=== PATIENT | male | born 1970 | race Caucasian/White ===

== ENCOUNTER 2018-02-18 16:55 | Emergency (ER) | payer MEDICAID ==
[~2018-02-18] VITALS: Ht 175.3 cm; Wt 61.4 kg
[2018-02-18 17:08] VITALS: BP 113/53
[2018-02-18] MEDS ORDERED: TRAZ-136 PO (17:19)
== END 2018-02-18 17:45 | disposition home or self-care (01) ==
LOC: ED 17:39
DX: B86 Scabies (principal); J45.909 Unspecified asthma, uncomplicated; Z88.0 Allergy status to penicillin; Z89.029 Acquired absence of unspecified finger(s)
CPT/HCPCS: 99283; Q0177

== ENCOUNTER 2018-02-23 21:04 | Emergency (ER) | payer MEDICAID ==
[~2018-02-23] VITALS: Ht 175.3 cm; Wt 62.5 kg
[~2018-02-23 21:04] MED LIST: TRAZ-136 PO
[2018-02-23 21:07] VITALS: BP 118/73
== END 2018-02-23 21:51 | disposition home or self-care (01) ==
LOC: ED 21:45
DX: L03.113 Cellulitis of right upper limb (principal); B86 Scabies; J45.909 Unspecified asthma, uncomplicated; Z89.029 Acquired absence of unspecified finger(s)
CPT/HCPCS: 99283

== ENCOUNTER 2018-03-08 07:34 | Emergency (ER) | payer MEDICAID ==
[~2018-03-08] VITALS: Ht 175.3 cm; Wt 63.0 kg
[2018-03-08] MEDS ORDERED: DEXAMETHASONE 4 MG TABLET ONE (08:29)
[2018-03-08] MEDS ORDERED: LIDOCAINE-MPF 2%, 2ML ONE (08:29)
[2018-03-08] MEDS ORDERED: BACITRACIN ZINC OINT 500U/GM, 0.9 GM ONE (08:29)
[2018-03-08] MEDS ORDERED: CEFTRIAXONE 1,000 MG IM ONE (08:30)
[2018-03-08] MEDS ORDERED: DEXAMETHASONE 4 MG TABLET PO ONE (08:30)
[2018-03-08] MEDS ORDERED: CEFTRIAXONE 1,000 MG ONE (08:31)
[2018-03-08 08:39] VITALS: BP 114/64
== END 2018-03-08 09:08 | disposition home or self-care (01) ==
LOC: ED 09:00
DX: L03.113 Cellulitis of right upper limb (principal); L03.114 Cellulitis of left upper limb; J45.909 Unspecified asthma, uncomplicated
CPT/HCPCS: 96372; 99283; J0696

== ENCOUNTER 2018-03-20 09:39 | Emergency (ER) | payer MEDICAID ==
[~2018-03-20] VITALS: Ht 175.3 cm; Wt 62.6 kg
[2018-03-20 09:42] VITALS: BP 119/69
== END 2018-03-20 10:36 | disposition home or self-care (01) ==
LOC: ED 09:54
DX: L20.84 Intrinsic (allergic) eczema (principal); J45.909 Unspecified asthma, uncomplicated; Z89.029 Acquired absence of unspecified finger(s)
CPT/HCPCS: 99283

== ENCOUNTER 2018-04-23 23:43 | Emergency (ER) | payer MEDICAID ==
[~2018-04-23] VITALS: Ht 175.3 cm; Wt 63.4 kg
[2018-04-24] MEDS ORDERED: DIPHENHYDRAMINE 25 MG CAPSULE PO ONE (00:30)
[2018-04-24] MEDS ORDERED: DIPHENHYDRAMINE 25 MG CAPSULE ONE (00:30)
[2018-04-24 00:31] LABS: MEAN CORPUSCULAR HEMOGLOBIN 32.6 pg (27.5-34.5); MEAN CORPUSCULAR HGB CONC 35.6 g/dL (33.2-36.2); MEAN CORPUSCULAR VOLUME 91.6 fL (81-97); MEAN PLATELET VOLUME 8.1 fL (7.4-10.4); PLATELET COUNT 229 x10^3/uL (130-400); RED BLOOD COUNT 5.05 x10^6/uL (4.38-5.82); RED CELL DISTRIBUTION WIDTH 13.3 % (9.4-14.8)
[2018-04-24 00:42] LABS: ALANINE AMINOTRANSFERASE 200 U/L (12-78); ALBUMIN 3.5 g/dL (3.4-5.0); ANION GAP 7 mmol/L (5-15); CALCIUM 7.7 mg/dL (8.5-10.1); CHLORIDE 108 mmol/L (98-107); CREATININE 1.45 mg/dL (0.7-1.3)
[2018-04-24 00:44] LABS: ALKALINE PHOSPHATASE 107 U/L (45-117); BILIRUBIN,TOTAL 0.5 mg/dL (0.2-1.0); TOTAL PROTEIN 6.7 g/dL (6.4-8.2)
[2018-04-24 01:04] LABS: MD YES
[2018-04-24 01:08] LABS: BAND#(MANUAL) 0.11 x10^3/uL; BANDS%(MANUAL) 1 % (0-7); EOS#(MANUAL) 2.23 x10^3/uL (0.0-0.4); EOS% (MANUAL) 21 % (1-7); LYMPH#(MANUAL) 2.65 x10^3/uL (1-3.4); LYMPHS% (MANUAL) 25 % (22-44); MONOS#(MANUAL) 0.11 x10^3/uL (0.3-2.7); MONOS% (MANUAL) 1 % (2-9); SEG#(MANUAL) 5.51 x10^3/uL (1.8-6.8); SEGS% (MANUAL) 52 % (42-75)
[2018-04-24 01:09] LABS: <PLATELET ESTIMATE> ADEQUATE; <PLT MORPHOLOGY> NORMAL PLT MORPH; <RBC MORPHOLOGY> NORMAL
[2018-04-24 01:27] VITALS: BP 116/67
== END 2018-04-24 02:00 | disposition home or self-care (01) ==
LOC: ED 04-24 00:38
DX: L50.1 Idiopathic urticaria (principal); Z88.0 Allergy status to penicillin
CPT/HCPCS: 36415; 71045; 80053; 85025; 93005; 99285; J7512; Q0163

== ENCOUNTER 2018-06-01 13:08 | Emergency (ER) | payer MEDICAID ==
[~2018-06-01] VITALS: Ht 175.3 cm; Wt 62.8 kg
[~2018-06-01 13:08] MED LIST changes: -TRAZ-136 PO; +TRAZ50TA66 PO
[2018-06-01 13:11] VITALS: BP 125/82
[2018-06-01] MEDS ORDERED: FAMOTIDINE 20 MG TABLET PO ONE (14:00)
[2018-06-01] MEDS ORDERED: CLINDAMYCIN 300 MG CAPSULE PO ONE (14:00)
[2018-06-01] MEDS ORDERED: FAMOTIDINE 20 MG TABLET ONE (14:01)
[2018-06-01] MEDS ORDERED: CLINDAMYCIN 300 MG CAPSULE ONE (14:02)
[2018-06-01 14:46] LABS: BASOPHILS # (AUTO) 0.05 x10^3/uL (0-0.1); BASOPHILS % (AUTO) 1 % (0-1); EOSINOPHILS # (AUTO) 0.21 x10^3/uL (0-0.4); EOSINOPHILS % (AUTO) 2 % (1-7); LYMPHOCYTES # (AUTO) 1.14 x10^3/uL (1-3.4); LYMPHOCYTES % (AUTO) 10 % (22-44); MD NO; MEAN CORPUSCULAR HGB CONC 33.6 g/dL (33.2-36.2); MEAN CORPUSCULAR VOLUME 92.2 fL (81-97); MEAN PLATELET VOLUME 8.3 fL (7.4-10.4); MONOCYTES # (AUTO) 0.55 x10^3/uL (0.2-0.8); MONOCYTES % (AUTO) 5 % (2-9); NEUTROPHILS # (AUTO) 9.26 x10^3/uL (1.8-6.8); NEUTROPHILS % (AUTO) 83 % (42-75); PLATELET COUNT 257 x10^3/uL (130-400); RED BLOOD COUNT 5.28 x10^6/uL (4.38-5.82); RED CELL DISTRIBUTION WIDTH 13.1 % (9.4-14.8)
[2018-06-01 14:54] LABS: ALBUMIN 4.1 g/dL (3.4-5.0); ANION GAP 6 mmol/L (5-15); CALCIUM 8.7 mg/dL (8.5-10.1); CHLORIDE 105 mmol/L (98-107); CREATININE 1.53 mg/dL (0.7-1.3)
== END 2018-06-01 15:23 | disposition home or self-care (01) ==
LOC: ED 13:26
DX: L03.113 Cellulitis of right upper limb (principal); L20.9 Atopic dermatitis, unspecified; J45.909 Unspecified asthma, uncomplicated
CPT/HCPCS: 36415; 73080; 80048; 82040; 85025; 99284; Q0177

== ENCOUNTER 2018-08-24 09:39 | Emergency (ER) | payer MEDICAID ==
[~2018-08-24] VITALS: Ht 175.3 cm; Wt 65.0 kg
[2018-08-24] MEDS ORDERED: LORazepam 2 MG/ML, 1ML IVPush ONE (10:00)
[2018-08-24] MEDS ORDERED: SODIUM CHLORIDE 0.9% 1,000ML IVBOLUS ONE (10:00)
[2018-08-24] MEDS ORDERED: SODIUM CHLORIDE FLUSH 10ML SYR IVF ONE (10:00)
[2018-08-24] MEDS ORDERED: LORazepam 2 MG/ML, 1ML ONE (10:03)
--- NOTE | 2018-08-24 10:54 | NUR ---
PT NO LONGER DIAPHORETIC. FLUIDS INFUSING. WILL CONTINUE TO MONITOR
[2018-08-24 11:04] VITALS: BP 115/59
--- NOTE | 2018-08-24 11:04 | NUR ---
HR SLOWING DOWN. PT NOTED TO HAVE TWITCHING MOVEMENT
--- NOTE | 2018-08-24 12:20 | NUR ---
PT ABLE TO WALK TO BATHROOM AND BACK WITHOUT ASSISANCE. PT GIVEN DISCHARGE PAPERS, ASSISTED WITH GETTING DRESSED. PT CONTINUES TO HAVE JERKING MOVEMENTS BUT ABLE TO WALK WITHOUT ASSISANCE TO DISCHARGE WINDOW. REPAIR MILLER MILES AT BEDSIDE OBSERVING PT'S ABILITY TO BE DISCHARGED
== END 2018-08-24 12:24 | disposition home or self-care (01) ==
LOC: ED 12:05
DX: R00.0 Tachycardia, unspecified (principal); F41.9 Anxiety disorder, unspecified; F15.929 Other stimulant use, unspecified with intoxication, unspecified; F17.200 Nicotine dependence, unspecified, uncomplicated; J45.909 Unspecified asthma, uncomplicated
CPT/HCPCS: 93005; 96374; 99283; J2060; J7030

== ENCOUNTER 2019-07-05 14:42 | Emergency (ER) | payer MEDICAID ==
[~2019-07-05] VITALS: Ht 175.3 cm; Wt 60.0 kg
--- NOTE | 2019-07-05 16:00 | NUR ---
REMAINS SLEEPING CONTINUING TO MONITOR
--- NOTE | 2019-07-05 16:54 | NUR ---
PT SLEEPING AT THIS TIME MONITORING
[2019-07-05 17:05] VITALS: BP 124/87
== END 2019-07-05 17:45 ==
LOC: ED 17:39
DX: F10.10 Alcohol abuse, uncomplicated (principal); F15.10 Other stimulant abuse, uncomplicated; J45.909 Unspecified asthma, uncomplicated; Y90.9 Presence of alcohol in blood, level not specified
CPT/HCPCS: 99283

== ENCOUNTER 2019-11-11 01:15 | Inpatient (IN) | payer MEDICAID ==
[~2019-11-11] VITALS: Ht 175.3 cm; Wt 55.6 kg
--- NOTE | 2019-11-11 01:25 | NUR ---
BIB [facility] FOR FEELING DEHYDRATED AFTER DOING METH. REPORTS METH USE FOR 30 YEARS. REPORTS A METH BINGE FOR THE PAST 40 HRS. LAST INJECTED 1 HR [employer]. PT REPORTS DRY MOUTH AND DIZZINESS. PT RESTLESS BUT IS CALM AND COOPERATIVE WITH STAFF AND A&OX4.
[2019-11-11] MEDS ORDERED: SODIUM CHLORIDE FLUSH 10ML SYR IVF ONE (01:30)
[2019-11-11] MEDS ORDERED: SODIUM CHLORIDE 0.9% 1,000ML IVBOLUS ONE ×2 (01:30→02:30)
[2019-11-11] MEDS ORDERED: LORazepam 1MG TABLET ONE (01:30)
[2019-11-11] MEDS ORDERED: LORazepam 1MG TABLET PO ONE (01:30)
--- NOTE | 2019-11-11 01:47 | NUR ---
IV STARTED IN LAC. IVF BOLUS INFUSING. PT DRINKING WATER. LABS DRAWN AND ATIVAN GIVEN.
[2019-11-11 01:52] LABS: BASOPHILS # (AUTO) 0.03 x10^3/uL (0-0.1); BASOPHILS % (AUTO) 0 % (0-1); EOSINOPHILS % (AUTO) 0 % (1-7); LYMPHOCYTES # (AUTO) 0.77 x10^3/uL (1-3.4); LYMPHOCYTES % (AUTO) 5 % (22-44); MD NO; MEAN CORPUSCULAR HEMOGLOBIN 31.7 pg (27.5-34.5); MEAN CORPUSCULAR HGB CONC 34.1 g/dL (33.2-36.2); MEAN CORPUSCULAR VOLUME 93.1 fL (81-97); MEAN PLATELET VOLUME 8.2 fL (7.4-10.4); MONOCYTES # (AUTO) 0.15 x10^3/uL (0.2-0.8); MONOCYTES % (AUTO) 1 % (2-9); NEUTROPHILS # (AUTO) 15.19 x10^3/uL (1.8-6.8); NEUTROPHILS % (AUTO) 94 % (42-75); PLATELET COUNT 258 x10^3/uL (130-400); RED BLOOD COUNT 5.25 x10^6/uL (4.38-5.82); RED CELL DISTRIBUTION WIDTH 13.8 % (9.4-14.8)
[2019-11-11 02:01] LABS: ALANINE AMINOTRANSFERASE 126 U/L (12-78); ALBUMIN 4.9 g/dL (3.4-5.0); ANION GAP 10 mmol/L (5-15); CALCIUM 9.8 mg/dL (8.5-10.1); CHLORIDE 102 mmol/L (98-107); CREATININE 2.46 mg/dL (0.7-1.3)
[2019-11-11 02:03] LABS: ALKALINE PHOSPHATASE 84 U/L (45-117); BILIRUBIN,TOTAL 1.5 mg/dL (0.2-1.0); TOTAL PROTEIN 8.6 g/dL (6.4-8.2)
--- NOTE | 2019-11-11 02:29 | NUR ---
PT REPORTS HE IS FEELING MUCH BETTER. 2ND LITER IVF BOLUS INFUSING AT THIS TIME.
--- NOTE | 2019-11-11 02:57 | NUR ---
PT SLEEPING AT THIS TIME.
--- NOTE | 2019-11-11 03:34 | NUR ---
PT INFORMED OF INPATIENT ADMISSION. PT WITH SPASTIC/TWITCHING MOVEMENTS BUT ALERT AND ORIENTED.
[2019-11-11 04:00] VITALS: BP 111/67
[2019-11-11] MEDS ORDERED: ONDANSETRON 2MG/ML, 2ML IVPush PRN (04:00)
[2019-11-11] MEDS ORDERED: ACETAMINOPHEN 325 MG TABLET PO PRN (04:00)
[2019-11-11] MEDS ORDERED: hydrALAzine 20 MG/ML, 1ML IVPush PRN (04:00)
[2019-11-11] MEDS: LACTATED RINGERS 1,000 ML IV SCH ×4 (05:19→16:31)
[2019-11-11 05:53] LABS: CHLORIDE,URINE RANDOM 90 mmol/L; POTASSIUM,URINE RANDOM 73 mmol/L; SODIUM,URINE RANDOM 106 mmol/L
[2019-11-11 05:54] LABS: AMPHETAMINE SCREEN, URINE Positive (Negative); BARBITURATE SCREEN, URINE Negative (Negative); BENZODIAZEPINE SCREEN, URINE Negative (Negative); CANNABINOID SCREEN, URINE Negative (Negative); COCAINE SCREEN, URINE Negative (Negative); METHADONE SCREEN, URINE Negative (Negative); OPIATE SCREEN, URINE Negative (Negative)
[2019-11-11] MEDS: LORazepam 2 MG/ML, 1ML IVPush PRN ×2 (07:52→12:11)
[2019-11-11 08:01] LABS: ANION GAP 10 mmol/L (5-15); CALCIUM 8.3 mg/dL (8.5-10.1); CHLORIDE 108 mmol/L (98-107); CREATININE 1.84 mg/dL (0.7-1.3)
[2019-11-11 08:05] LABS: CREATINE KINASE, TOTAL 438 U/L (39-308)
[2019-11-11 09:15] VITALS: BP 160/66
[2019-11-11 13:16] VITALS: BP 102/56
== END 2019-11-11 19:33 | disposition left against medical advice (07) | DRG 683 ==
LOC: ED 03:15 → EDIP 03:42 → 3N 04:01
PROVIDERS: ADMIT Family Medicine; ATTEND Family Medicine
DX: N17.0 Acute kidney failure with tubular necrosis (principal); F15.121 Other stimulant abuse with intoxication delirium; E86.0 Dehydration; D72.829 Elevated white blood cell count, unspecified; E87.5 Hyperkalemia; J45.909 Unspecified asthma, uncomplicated; E80.6 Other disorders of bilirubin metabolism; R74.0 Nonspecific elevation of levels of transaminase and lactic acid dehydrogenase [LDH]; R74.8 Abnormal levels of other serum enzymes; Z89.021 Acquired absence of right finger(s); Z89.011 Acquired absence of right thumb; Z88.0 Allergy status to penicillin; Z91.013 Allergy to seafood
CPT/HCPCS: 36415; 80048; 80053; 80074; 80307; 82436; 82550; 82570; 84133; 84300; 85025; 87521; 87806; 93005; 96360; 99285; G0378; G0475; J2060; J7030; J7120

== ENCOUNTER 2020-09-06 15:48 | Emergency (ER) | payer MEDICAID ==
[~2020-09-06] VITALS: Ht 175.3 cm; Wt 55.2 kg
[2020-09-06 15:50] VITALS: BP 92/64
[2020-09-06] MEDS ORDERED: LIDOCAINE-MPF 1%, 5ML ONE (16:08)
[2020-09-06] MEDS ORDERED: LIDOCAINE-MPF 1%, 5ML INFIL ONE (16:30)
== END 2020-09-06 17:08 | disposition home or self-care (01) ==
LOC: ED 17:00
DX: L02.415 Cutaneous abscess of right lower limb (principal)
CPT/HCPCS: 10060